=== PATIENT | male | born 1965 | race Caucasian/White ===

== ENCOUNTER 2024-05-03 14:01 | Outpatient (CLI) | payer BC ==
[2024-05-03 15:39] LABS: Hematocrit 45.8 % (38.8-50.0); Hemoglobin 15.2 g/dL (13.5-17.5); Mean Corpuscular HGB CONC 33.2 g/dL (32.0-36.0); Mean Corpuscular Hemoglobin 29.6 pg (27.0-33.0); Mean Corpuscular Volume 89.3 fL (81.2-95.1); Mean Platelet Volume 9.6 fL (7.4-10.4); Platelet Count 301 10x3/uL (150-450); RBC Distribution Width 13.5 % (11.5-14.5); Red Blood Cell (RBC) Count 5.13 10x6/uL (4.32-5.72); White Blood Cell (WBC) Count 9.1 10x3/uL (3.5-10.5)
[2024-05-03 16:03] LABS: ALT (SGPT) 23 U/L (8-55); AST (SGOT) 18 U/L (5-34); Albumin 3.5 g/dL (3.5-5.0); Alkaline Phosphatase 67 U/L (40-110); Anion Gap 18 mmol/L (10-20); BUN (Urea Nitrogen) 13 mg/dL (8.4-25.7); Bilirubin, Total 0.3 mg/dL (0.2-1.2); Calc. Creatinine Clearance 0 mL/min (70-130); Calcium 8.9 mg/dL (7.8-10.44); Carbon Dioxide 25 mmol/L (22-29); Chloride 106 mmol/L (98-107); Estimated GFR 90; Globulin 2.6 g/dL (2.4-3.5); Glucose 121 mg/dL (70-105); Potassium 4.2 mmol/L (3.5-5.1); Protein, Total 6.1 g/dL (6.0-8.3); Sodium 145 mmol/L (136-145)
== END 2024-05-03 14:02 | disposition home or self-care (01) ==
LOC: CSHLAB 14:01
PROVIDERS: ATTEND Surgery
DX: Z01.818 Encounter for other preprocedural examination (principal); K42.9 Umbilical hernia without obstruction or gangrene
CPT/HCPCS: 80053; 85027; 93005; 93010

== ENCOUNTER 2024-05-11 05:54 | Day surgery (SDC) | payer BC ==
[2024-05-03 14:40] VITALS: BMI 33.9
[2024-05-11] MEDS ORDERED: Bupivacaine/Epinephrine 0.25% 30 ML VIAL ONE (06:57)
[2024-05-11] MEDS ORDERED: CEFAZOLIN 2 GM VIAL ONE (07:08)
[2024-05-11] MEDS ORDERED: Lidocaine 2% PF 5 ML VIAL ONE (07:13)
[2024-05-11] MEDS ORDERED: Rocuronium Bromide 10 MG/ML (10ML VIAL) ONE (07:13)
[2024-05-11] MEDS ORDERED: PROPOFOL 20 ML ONE ×2 (07:13→08:11)
[2024-05-11] MEDS ORDERED: Ondansetron PF 4 MG/2 ML Vial ONE (07:14)
[2024-05-11] MEDS ORDERED: Dexamethasone 20 MG/5 ML VIAL ONE (07:14)
[2024-05-11] MEDS ORDERED: fentaNYL 50 mcg/mL 1 mL Vial ONE ×2 (07:14→08:38)
[2024-05-11] MEDS ORDERED: HYDROmorphone 0.5 MG/0.5 ML SYRINGE ONE (07:15)
[2024-05-11] MEDS ORDERED: Midazolam HCl 2 mg/2 ml Vial ONE (07:18)
[2024-05-11] MEDS ORDERED: PHENYLEPHRINE-NS 100 MCG/ML 10 ML SYRINGE ONE (07:42)
[2024-05-11] MEDS ORDERED: SUGAMMADEX SODIUM 200 MG/2 ML VIAL ONE (07:49)
[2024-05-11] MEDS ORDERED: Ketorolac Tromethamine 30 MG (1 mL) VIAL ONE (08:07)
[2024-05-11] MEDS ORDERED: HYDROcodone/Acetaminophen 5/325 mg Tablet ONE (09:24)
== END 2024-05-11 10:15 | disposition home or self-care (01) ==
LOC: CSHSDC 05:54
PROVIDERS: ATTEND Surgery
PROC: 0WUF4JZ Supplement Abdominal Wall with Synthetic Substitute, Percutaneous Endoscopic Approach (ICD-10-PCS; principal; 2024-05-11)
DX: K42.9 Umbilical hernia without obstruction or gangrene (principal); K21.9 Gastro-esophageal reflux disease without esophagitis; I10 Essential (primary) hypertension; E66.01 Morbid (severe) obesity due to excess calories; F17.200 Nicotine dependence, unspecified, uncomplicated; Z68.33 Body mass index [BMI] 33.0-33.9, adult; Z98.890 Other specified postprocedural states; Z88.2 Allergy status to sulfonamides
CPT/HCPCS: A4314; J1100; J1171; J1885; J2250; J2405; J2704; J3010; S2900